=== PATIENT | male | born 1965 | race Caucasian/White ===

== ENCOUNTER → 2020-07-01 16:14 | Outpatient (CLI) | payer OTHER, SELFPAY ==
[2020-07-03 10:36] LABS: PSA, Free 0.24 ng/mL; Prostate Specific Ag 5.1 ng/mL (0.0-4.0)
== END ==
PROVIDERS: Visit Provider Urology
DX: R97.20 Elevated prostate specific antigen [PSA] (principal)
CPT/HCPCS: 36415; 84153; 84154

== ENCOUNTER → 2020-09-17 10:07 | Outpatient (CLI) | payer OTHER, SELFPAY ==
[2020-09-17 10:42] LABS: Basophils # 0.1 K/mm3 (0-0.2); Eosinophils # 0.2 K/mm3 (0.0-0.4); Hematocrit 49.7 % (42.0-52.0); Hemoglobin 16.6 g/dL (14.1-18.0); Lymphocytes # 2.1 K/mm3 (0.7-4.5); Lymphocytes % 28.9 % (10-50); Mean Corpuscular HGB Conc 33.3 g/dL (31.8-35.4); Mean Corpuscular Hemoglobin 33.1 pg (27.0-31.2); Mean Corpuscular Volume 99.3 fl (80-94); Mean Platelet Volume 8.4 fl (7.4-10.4); Monocytes # 0.4 K/mm3 (0.1-1.0); Monocytes % 5.5 % (1.7-9.3); Neutrophils # 4.6 K/mm3 (1.8-7.8); Neutrophils % 62.6 % (37.0-80.0); Platelet Count 202 K/mm3 (142-424); Red Cell Distribution Width 13.2 % (11.5-17.5); White Blood Count 7.4 K/mm3 (4.8-10.8)
[2020-09-17 11:03] LABS: Chloride 102 mmol/L (98-107); Sodium 137 mmol/L (136-145)
[2020-09-17 11:06] LABS: Blood Urea Nitrogen 17 mg/dl (9-20); Carbon Dioxide 27 mmol/L (22.0-30.0); Estimated Glomerular Filt Rate 118 ml/min (>60); GFR (African American) 142 ML/MIN (>60)
[2020-09-17 11:07] LABS: Calcium 10.1 mg/dl (8.4-10.2); Glucose 230 mg/dl (74-100)
[2020-09-17 11:15] LABS: Coronavirus 19 IgG Antibody Negative (Negative); Coronavirus 19 IgM Antibody Negative (Negative)
== END ==
PROVIDERS: Visit Provider Urology
DX: Z01.818 Encounter for other preprocedural examination (principal); Z20.822 Contact with and (suspected) exposure to COVID-19; R97.20 Elevated prostate specific antigen [PSA]
CPT/HCPCS: 36415; 80048; 85025; 86328

== ENCOUNTER 2020-09-19 08:05 | Day surgery (SDC) | payer OTHER, SELFPAY ==
[2020-09-15 11:56] VITALS: BMI 32.3
[2020-09-19 08:39] VITALS: BP 130/82; PULSE 82; RESP 18; TEMP 36.1; O2SAT 97
--- NOTE | 2020-09-19 09:36 | HMH.ANESCL ---
[facility] Anesthesia Checklist - Patient Identification Patient Identification: Arm Band - Structural Data Admitted From: Home Planned Operative Procedure/s: Prostate biopsy Consent for Planned Operative Procedure(s) Verified: Yes - Additional verifications Anesthesia Reactions: No Hx Blood Transfusions: No Blood Transfusion Reaction: No - Airway Assessment C-Spine Mobility Assessed: Yes TMJ Mobility Assessed: Yes Dentition: Poor Dentition - Neurological Assessment Level of Consciousness: Awake, Alert Hx Seizures: No - Anesthesia Plan Anesthesia Risk discussed: Yes Anesthesia Plan: Verified ASA Class: III Anesthesia Type: Local & MAC [facility] History I have reviewed the patient's past medical history: Yes Medical History: Reports:: Chronic Obstructive Pulmonary Disease (COPD), Diabetes Mellitus Type 2, Gastroesophageal Reflux Disease(GERD), Hypertension Denies:: Cancer, Diabetes Mellitus Type 1, MRSA, Seizures *Have you ever received a pneumonia vaccine?: No *Have you received a flu vaccine this season?: No Other Medical History: Reports: Other. Denies: Blood Transfusion Reaction Comment:: MARVIN Anesthesia experience/problems:: None Laterality Cases: Right: Arthroscopy Knee Other Surgeries: Yes: No Previous Surgery, Colonoscopy Amputation: No Fractures: No - *Social History Last grade of school completed: High school graduate Smoking Status: Current every day smoker Tobacco Type: cigarettes # Packs/Day (cigarettes): 1 Alcohol Intake: never Substance Use Type: denies use *Occupational Status:: employed Housing: house Household Members: none *Travel in the last 8 weeks: None Family Hx:: Cancer, Hypertension, Diabetes
[2020-09-19 10:37] VITALS: BP 94/74; PULSE 75; RESP 16; TEMP 36.4; O2SAT 94
[2020-09-19 10:47] VITALS: BP 125/64; PULSE 72; RESP 18; O2SAT 95
[2020-09-19 10:57] VITALS: BP 127/66; PULSE 71; RESP 18; O2SAT 96
--- NOTE | 2020-09-19 10:59 | HMH.ANESI ---
[facility] Anesthesia Record Part I Intake, IV Amount: 700 Estimated blood loss (mL): 0 Urine output (mL): 0 Blood Pressure: 94/47 SaO2: 94 Pulse Rate: 73 Respiratory Rate: 14 Temperature: 97.8 F Patient is:: Drowsy Stable to PACU at:: 10:37
[2020-09-19 11:00] VITALS: BP 94/47; PULSE 73; RESP 14; TEMP 36.6; O2SAT 94
[2020-09-19 11:30] LABS: POC Glucose,Bedside 221 (70-110)
--- NOTE | 2020-09-19 14:34 | HMH.OPNOTE ---
Date of procedure: 09/19/20 Pre-op Diagnosis:: Elevated PSA Post-op Diagnosis:: Elevated PSA Procedure performed:: Transrectal ultrasound with prostate biopsy Surgeon:: Olman Harmon MD [employer] OPERATOR:: Other (gladis irizarry) Anesthesia: MAC Estimated blood loss (mL): 0 Clinical Note:: 55-year-old white male with history of elevated PSA. His most recent PSA was 5.1 but his free PSA put him at greater than 50% risk of prostate cancer. He wishes to proceed with transrectal ultrasound and prostate biopsy. Operative findings:: Prostate was 38 g in size and there was no evidence of hypoechoic or hyperechoic lesions. A few small scattered prostatic calcifications were present. Operative note:: Patient taken to the operating suite after informed consent was obtained. Monitored anesthesia care was administered and patient placed into the left lateral decubitus position. He had performed preoperative oral antibiotics. After adequate analgesia the transrectal ultrasound probe was placed into the rectum without difficulty and the prostate easily visualized. Prostate was measured at 38.1 cm?. There was no evidence of hypoechoic or hyperechoic lesions. A few small scattered calcifications were noted. Local anesthetic placed into each neurovascular bundle and 12 biopsies then taken in a systematic fashion. 6 from each side. Transrectal ultrasound was removed at the end the case. Patient tolerated procedure well there are no complications. Condition: stable Disposition: same day Specimens:: Prostate biopsies Complications:: None
== END 2020-09-19 10:57 | disposition home or self-care (01) ==
PROVIDERS: PCP Nurse Practitioner Family; Visit Provider Urology
PROC: (CPT 55700; principal; 2020-09-19 10:00)
DX: R97.20 Elevated prostate specific antigen [PSA] (principal); N40.1 Benign prostatic hyperplasia with lower urinary tract symptoms; R10.2 Pelvic and perineal pain; E11.9 Type 2 diabetes mellitus without complications; K21.9 Gastro-esophageal reflux disease without esophagitis; I10 Essential (primary) hypertension; M54.5 Low back pain; Z72.0 Tobacco use; Z87.39 Personal history of other diseases of the musculoskeletal system and connective tissue; Z83.3 Family history of diabetes mellitus; Z82.49 Family history of ischemic heart disease and other diseases of the circulatory system; Z80.9 Family history of malignant neoplasm, unspecified
CPT/HCPCS: 55700; 76872; 82962

== ENCOUNTER 2021-04-22 13:22 | Emergency (ER) | payer OTHER, SELFPAY ==
--- NOTE | 2021-04-22 14:53 | PC.NURSE ---
checked on pt in waiting room at this time, notified pt no bed available in ER at this time, will get pt in a room as soon as one is available.
[2021-04-22 15:20] VITALS: BP 135/73; PULSE 100; RESP 18; TEMP 37.3; O2SAT 98; BMI 35.4
--- NOTE | 2021-04-22 15:36 | XR_ITS ---
PROCEDURE: XR KNEE RT 4V CLINICAL INDICATION: pain, swelling, recent fall COMPARISON: No exams were available for comparison FINDINGS: There osteoarthritic changes of the knee with postsurgical changes. Transverse screws present in the distal femur. There is chondrocalcinosis. There is flattening of the articular surface of the medial lateral femoral condyle. There has been prior ACL repair and PCL repair. Bony hypertrophic changes are present at the knee joint. There is a well-circumscribed calcific density along the proximal and medial aspect of the proximal tibia. Faint metallic flecks are present along the posterior aspect of the knee joint and there are numerous small calcific densities about the knee joint consistent with loose bodies. Suprapatellar effusion is noted. There is chondrocalcinosis of the lateral meniscus. IMPRESSION: Postsurgical changes with osteoarthritic change with multiple loose bodies and knee joint effusion. No acute fracture. Dictated by: Nick Mccarthy MD 04/22/2021 16:10 Nick Mccarthy MD in OV 04/22/2021 16:10
[2021-04-22 17:00] VITALS: BP 130/68; PULSE 91; RESP 18; O2SAT 97
[2021-04-22 17:30] VITALS: BP 118/73; PULSE 90; RESP 18; O2SAT 98
[2021-04-22 18:00] VITALS: BP 128/80; PULSE 93; RESP 18; O2SAT 98
[2021-04-22 18:39] LABS: Basophils # 0.1 K/mm3 (0-0.2); Basophils % 0.6 % (0.1-2.0); Eosinophils # 0.1 K/mm3 (0.0-0.4); Eosinophils % 0.8 % (0.1-12.0); Hematocrit 48.7 % (42.0-52.0); Hemoglobin 15.9 g/dL (14.1-18.0); Lymphocytes # 2.4 K/mm3 (0.7-4.5); Lymphocytes % 19.9 % (10-50); Mean Corpuscular HGB Conc 32.6 g/dL (31.8-35.4); Mean Corpuscular Volume 104.3 fl (80-94); Mean Platelet Volume 9.1 fl (7.4-10.4); Monocytes # 0.7 K/mm3 (0.1-1.0); Monocytes % 5.9 % (1.7-9.3); Neutrophils # 8.8 K/mm3 (1.8-7.8); Neutrophils % 72.7 % (37.0-80.0); Platelet Count 211 K/mm3 (142-424); Red Blood Count 4.67 M/mm3 (4.60-6.20); Red Cell Distribution Width 12.6 % (11.5-17.5); White Blood Count 12.1 K/mm3 (4.8-10.8)
[2021-04-22 18:48] LABS: Chloride 98 mmol/L (98-107); Potassium 3.6 mmoL/L (3.5-5.1); Sodium 135 mmol/L (136-145)
[2021-04-22 18:50] LABS: Alanine Aminotransferase 17 U/L (12-78); Alkaline Phosphatase 111 U/L (38-126); Aspartate Amino Transferase 17 U/L (17-59); Bilirubin,Total 0.8 mg/dl (0.2-1.3); Blood Urea Nitrogen 14 mg/dl (9-20); Creatinine Clearance Estimated 184 mL/min (50-200); Estimated Glomerular Filt Rate 117 ml/min (>60); GFR (African American) 142 ML/MIN (>60)
[2021-04-22 18:51] LABS: Albumin Level 3.9 g/dl (3.5-5.0); Albumin/Globulin Ratio 1.1 (1.1-1.8); Anion Gap 14.6 mEq/L (5-15); Calcium 9.1 mg/dl (8.4-10.2); Carbon Dioxide 26 mmol/L (22.0-30.0); Globulin 3.7 g/dL (1.3-3.2); Glucose 265 mg/dl (74-100); Total Protein,Serum 7.6 g/dl (6.3-8.2)
[2021-04-22 18:57] LABS: C-Reactive Protein 266.8 mg/L (0-4)
--- NOTE | 2021-04-22 19:17 | PC.NURSE ---
roberto in lab states it will be approx 30 minutes until results of cell count, other tests on synovial fluid is sends out.
--- NOTE | 2021-04-22 19:47 | PC.NURSE ---
Lab informed ER that the cell count would be a send out.
--- NOTE | 2021-04-22 19:47 | PC.NURSE ---
Dr. Paul parson. ANNEMARIE SOLANO speaking with Dr. Miller at this time.
--- NOTE | 2021-04-22 20:09 | PC.NURSE ---
Pt irrate and demanding something for pain at this time. Informed patient that MD would be notified.
--- NOTE | 2021-04-22 20:22 | HMH.EDGENADL ---
ED Disposition Clinical Impression: Knee pain Qualifiers: Chronicity: acute Laterality: bilateral Qualified Code(s): M25.561 - Pain in right knee; M25.562 - Pain in left knee Disposition: Home, Self-Care Condition on Discharge: Good Additional Instructions: Your evaluated emergency department today for pain of your knees, and there is no need for further emergent evaluation at this time. Exact cause of symptoms unclear but is likely due to inflammatory joint swelling related to recent trauma. Use ibuprofen, acetaminophen as well as prescription of oxycodone as directed for breakthrough pain, follow-up as directed by your orthopedist and return to the emergency department without hesitation with any new or worsening symptoms. Prescriptions: Oxycodone HCl [Oxycodone 5mg tab (IR)] 5 mg PO QID #3 tablet Transmission Status: Sent to [facility] Referrals: Gwen Melgoza APRN [Primary Care Provider] - - Critical Care Critical Care Time: No Attestation: On 04/22/21, the high probability of a clinically significant, sudden or life threatening deterioration of the following system(s) required my full and direct attention, intervention and personal management. The time I documented below is in addition to time spent performing reported procedures but includes the following listed in this critical care notation. Medical Decision Making - [place] Inquiry Pt receiving controlled substance: Yes [place] was queried for this patient: No Risks and benefits of using a controlled substance: were discussed with pt by me Vital Signs: 04/22/21 15:20 04/22/21 17:00 04/22/21 17:30 Temperature 99.1 F Temperature Source Oral Pulse Rate 91 H 90 Pulse Rate [Right Radial] 100 H Respiratory Rate 18 18 18 Blood Pressure 130/68 118/73 Blood Pressure [Right Arm] 135/73 Blood Pressure Mean 90 87 Blood Pressure Mean [Right Arm] 93 Blood Pressure Source [Right Arm] Automatic Cuff Blood Pressure Position [Right Arm] Sitting 02 Sat by Pulse Oximetry 98 97 98 Oxygen Delivery Method Room Air Room Air Room Air 04/22/21 18:00 Temperature Temperature Source Pulse Rate 93 H Pulse Rate [Right Radial] Respiratory Rate 18 Blood Pressure 128/80 Blood Pressure [Right Arm] Blood Pressure Mean 96 Blood Pressure Mean [Right Arm] Blood Pressure Source [Right Arm] Blood Pressure Position [Right Arm] 02 Sat by Pulse Oximetry 98 Oxygen Delivery Method Room Air - Lab Data Lab Results 04/22/21 18:18: WBC 12.1 H, RBC 4.67, Hgb 15.9, Hct 48.7, MCV 104.3 H, MCH 34.0 H, MCHC 32.6, RDW 12.6, Plt Count 211, MPV 9.1, Neut % (Auto) 72.7, Lymph % (Auto) 19.9, Ocean % (Auto) 5.9, Eos % (Auto) 0.8, Baso % (Auto) 0.6, Neut # (Auto) 8.8 H, Lymph # (Auto) 2.4, Ocean # (Auto) 0.7, Eos # (Auto) 0.1, Baso # (Auto) 0.1 04/22/21 18:18: Sodium 135 L, Potassium 3.6, Chloride 98, Carbon Dioxide 26, Anion Gap 14.6, BUN 14, Creatinine 0.70, Estimated Creat Clear 184, Estimated GFR 117, Est GFR ( Amer) 142, Glucose 265 H, Calcium 9.1, Total Bilirubin 0.8, AST 17, ALT 17, Alkaline Phosphatase 111, C-Reactive Protein 266.8 H, Total Protein 7.6, Albumin 3.9, Globulin 3.7 H, Albumin/Globulin Ratio 1.1 Result diagrams: 04/22/21 18:18 04/22/21 18:18 Orders (Tests/Meds): ED MEDICATIONS Discontinued Medications Generic Name Dose Route Start Last Admin Trade Name Freq PRN Reason Stop Dose Admin Morphine Sulfate 8 mg 04/22/21 20:13 04/22/21 20:17 Morphine 4mg/Ml Syringe IV 04/22/21 20:14 8 mg ONCE ONE Administration ORDERS Category Date Time Status Cell Ct. Synovial w/ Crystals Stat Lab 04/22/21 18:00 Received Body Fluid Cult & Gram Stain Stat Micro 04/22/21 18:12 Results Medical Decision Narrative: In summary, the patient is a 56-year-old male presenting for evaluation of progressive traumatic pain in bilateral knees with associated swelling of the right knee. He is in no acute distress, afebrile and
[2021-04-22 20:37] VITALS: BP 128/74; PULSE 90; RESP 18; TEMP 36.9; O2SAT 98
[2021-04-24 16:12] LABS: Clarity,Fluid Hazy (Clear); Color,Fluid Straw (Yellow); Eosinophils,Fluid 0 % (Not Estab.); Lymphocytes,Fluid 2 % (Not Estab.); Macrophages,Fluid 4 % (Not Estab.); Nucleated cells, Syn. Fluid 17360 cells/uL (0-200); Polys,Fluid 94 % (Not Estab.); RBC,Fluid 23000 /uL (Not Estab.)
== END 2021-04-22 20:39 | disposition home or self-care (01) ==
PROVIDERS: Emergency Provider Student in an Organized Health Care Education/Training Program; PCP Nurse Practitioner Family
DX: M25.561 Pain in right knee (principal); M25.562 Pain in left knee; E11.9 Type 2 diabetes mellitus without complications; J44.9 Chronic obstructive pulmonary disease, unspecified; K21.9 Gastro-esophageal reflux disease without esophagitis; I10 Essential (primary) hypertension; Z79.899 Other long term (current) drug therapy
CPT/HCPCS: 73564; 80053; 85025; 86140; 87070; 87205; 89051; 96374; 99283